=== PATIENT | female | born 1985 | race Caucasian/White ===

== ENCOUNTER 2020-08-27 05:34 | Outpatient (RCR) | payer OTHER ==
[~2020-08-27] VITALS: Ht 152 cm; Wt 71.3 kg
[2020-08-27] MEDS ORDERED: SPIR25TA5 PO (12:41)
[2020-08-27] MEDS ORDERED: MULT-1136 PO (12:41)
== END 2020-08-27 13:06 | disposition home or self-care (01) ==
LOC: PREOP 05:34
PROVIDERS: ATTEND Otolaryngology Otolaryngology/Facial Plastic Surgery
DX: Z01.818 Encounter for other preprocedural examination (principal)

== ENCOUNTER 2020-09-04 06:04 | Day surgery (SDC) | payer OTHER ==
[2020-09-04] VITALS (10 sets, daily range): BP systolic 101–111; BP diastolic 64–98
[~2020-09-04] VITALS: Ht 152 cm; Wt 71.3 kg
[~2020-09-04 06:04] MED LIST: MULT-1136 PO; SPIR25TA5 PO
[2020-09-04] MEDS: LACTATED RINGERS 1,000 ML IV PRN ×2 (06:38→08:24)
[2020-09-04 06:41] LABS: BASOPHILS % (AUTO) 0 % (0-10); EOSINOPHILS # (AUTO) 0.1 10^3/uL (0.0-0.3); EOSINOPHILS % (AUTO) 1 % (0-10); HEMATOCRIT 43 % (35-52); LYMPHOCYTES # (AUTO) 3.1 10^3/uL (1.0-4.0); LYMPHOCYTES % (AUTO) 26 % (12-44); MEAN CORPUSCULAR HEMOGLOBIN 31 pg (25-34); MEAN CORPUSCULAR HGB CONC 35 g/dL (32-36); MEAN CORPUSCULAR VOLUME 91 fL (80-99); MONOCYTES # (AUTO) 0.8 10^3/uL (0.0-1.0); MONOCYTES % (AUTO) 7 % (0-12); NEUTROPHILS # (AUTO) 7.7 10^3/uL (1.8-7.8); NEUTROPHILS % (AUTO) 65 % (42-75); PLATELET COUNT 254 10^3/uL (130-400); WHITE BLOOD COUNT 11.9 10^3/uL (4.3-11.0)
[2020-09-04] MEDS ORDERED: ROCURONIUM 10 MG/ML 5 ML SYRINGE IV ONE (06:46)
[2020-09-04] MEDS ORDERED: SEVOFLURANE (ULTANE) 15 ML INHAL SOLN ONE ×2 (06:46→07:56)
[2020-09-04] MEDS ORDERED: ONDANSETRON 4 MG/2 ML (SDV) Z0FRAN ONE (06:46)
[2020-09-04] MEDS ORDERED: proPOfol 200 MG/20 ML (DIPRIVAN) VIAL IV ONE ×2 (06:46→08:11)
[2020-09-04] MEDS ORDERED: LIDOCAINE PF 2% 5 ML (XYLOCAINE) VIAL ONE (06:46)
[2020-09-04] MEDS ORDERED: fentaNYL INJECTION 100 MCG/2 ML AMP ONE (06:46)
[2020-09-04] MEDS ORDERED: MIDAZOLAM 2 MG/2 ML (VERSED) VIAL ONE (06:46)
--- NOTE | 2020-09-04 07:02 | Progress Note-Pre Operative ---
Pre-Operative Progress Note H&P Reviewed The H&P was reviewed, patient examined and no changes noted. Date Seen by Provider: Sep 04, 2020 Time Seen by Provider: 06:30 Date H&P Reviewed: Sep 04, 2020 Time H&P Reviewed: 06:30 Pre-Operative Diagnosis: Chronic Tonsillitis JOANNE TODD MD Sep 04, 2020 07:02
[2020-09-04] MEDS ORDERED: NS IV 1000 ML 1,000 ML IV SCH (07:38)
--- NOTE | 2020-09-04 07:38 | Progress Note-Post Operative ---
Post-Operative Progess Note Surgeon (s)/Annual Greenhouse Manager (s) Surgeon JOANNE TODD MD Annual Greenhouse Manager n/a Pre-Operative Diagnosis Chronic Tonsillitis Post-Operative Diagnosis same Post-Op Procedure Note Date of Procedure: Sep 04, 2020 Name of Procedure Performed: Tonsillectomy Description & Findings Description and Findings: n/a Anesthesia Type get Estimated Blood Loss minimal Packing none. Specimen(s) collected/removed tonsils JOANNE TODD MD Sep 04, 2020 07:38
[2020-09-04] MEDS ORDERED: HYDROcodone/APAP 7.5MG-325 MG/15 ML (LORTAB) UDC PO PRN (07:45)
[2020-09-04] MEDS ORDERED: APAP 325 MG/10.15 ML LIQ (TYLENOL) UDC PO PRN (07:45)
--- NOTE | 2020-09-04 08:12 | Anesthesia-General Post-Op ---
General Patient Condition Mental Status/LOC: Same as Preop Cardiovascular: Satisfactory Nausea/Vomiting: Absent Respiratory: Satisfactory Pain: Controlled Complications: Absent Post Op Complications Complications None Follow Up Care/Instructions Patient Instructions None needed. Anesthesia/Patient Condition Patient Condition Patient is doing well, no complaints, stable vital signs, no apparent adverse anesthesia problems. No complications reported per nursing. BERENICE PATRICK CRNA Sep 04, 2020 08:12
[2020-09-04] MEDS ORDERED: morphine INJ 10 MG/ML 1ML (SYR OR VIAL) IVP ONE (08:15)
[2020-09-04] MEDS ORDERED: ONDANSETRON 4 MG/2 ML (SDV) Z0FRAN IVP PRN (08:15)
[2020-09-04] MEDS ORDERED: morphine INJ 10 MG/ML 1ML (SYR OR VIAL) ONE (08:18)
[2020-09-04] MEDS ORDERED: DEXAINTSOL PO (09:23)
[2020-09-04] MEDS ORDERED: HYDR15SO8 PO (09:23)
[2020-09-04] MEDS ORDERED: TETRACAINESUCKERS MT (09:23)
[2020-09-04] MEDS ORDERED: AZIT200S47 PO (09:23)
== END 2020-09-04 10:20 ==
LOC: SDC 06:04
PROVIDERS: ATTEND Otolaryngology Otolaryngology/Facial Plastic Surgery
DX: J35.01 Chronic tonsillitis (principal); K21.9 Gastro-esophageal reflux disease without esophagitis; D64.9 Anemia, unspecified; Z79.899 Other long term (current) drug therapy; Z91.048 Other nonmedicinal substance allergy status; Z90.49 Acquired absence of other specified parts of digestive tract
CPT/HCPCS: 36415; 84703; 85025; 87081; 88304